=== PATIENT | female | born 1995 | race Caucasian/White ===

== ENCOUNTER → 2018-06-20 | Outpatient (CLI) | payer OTHER ==
[~2018-06-20] MED LIST: ISOVUE-370 76% 100ML VIAL (Q9967) As Ordered
== END ==
LOC: M RADPRO 11:45
DX: N97.9 Female infertility, unspecified (principal)
CPT/HCPCS: 58340

== ENCOUNTER → 2018-07-15 | Outpatient (REF) | payer OTHER | LOC: M SFHCLERA 13:08 | DX: R10.9 Unspecified abdominal pain (principal) ==

== ENCOUNTER → 2018-07-28 | Outpatient (REF) | payer OTHER ==
[2018-07-28 13:38] LABS: HEMATOCRIT 41.6 % (36.0-47.0); HEMOGLOBIN 14.9 g/dl (12.0-15.5); MEAN CORPUSCULAR HEMOGLOBIN 32.3 pg (27.0-33.0); MEAN CORPUSCULAR HGB CONC 35.8 g/dl (32.0-36.5); PLATELET COUNT, AUTOMATED 308 10^3/uL (150-450); RED BLOOD COUNT 4.62 10^6/uL (4.00-5.40); RED CELL DISTRIBUTION WIDTH 11.9 % (11.5-14.5); WHITE BLOOD COUNT 14.8 10^3/uL (4.0-10.0)
[2018-07-28 14:31] LABS: RUBELLA IgG QUALITATIVE IMMUNE (IMMUNE)
[2018-07-28 14:35] LABS: HBsAg Prenatal NEGATIVE (NEGATIVE)
[2018-07-28 14:44] LABS: HCG, SERUM QUANTITATIVE 25242 MIU/ML
[2018-07-28 14:59] LABS: HEPATITIS C VIRUS ABY INDEX 0.5 INDEX (<0.8)
[2018-07-28 15:35] LABS: CHLAMYDIA DNA AMPLIFICATION NEGATIVE (NEGATIVE); GC DNA AMPLIFICATION NEGATIVE (NEGATIVE)
[2018-08-02 18:28] LABS: HIV 1&2 SCREEN CENTAUR NEGATIVE (NEGATIVE)
== END ==
LOC: M LAB REF 13:14
DX: O36.80X0 Pregnancy with inconclusive fetal viability, not applicable or unspecified (principal)
CPT/HCPCS: 86762

== ENCOUNTER → 2018-09-04 | Outpatient (CLI) | payer OTHER ==
[2018-09-04 19:12] LABS: BASO % 0.3 % (0.0-1.0); EOS # 0.2 10^3/uL (0.0-0.50); EOS % 1.5 % (0.0-3.0); HEMATOCRIT 40.1 % (36.0-47.0); IMMATURE GRANULOCYTE % 0.4 % (0-3.0); LYMPH # 2.5 10^3/uL (1.5-6.5); MEAN CORPUSCULAR HGB CONC 34.9 g/dl (32.0-36.5); MEAN CORPUSCULAR VOLUME 91.6 fl (80.0-96.0); MONO # 0.5 10^3/uL (0.0-0.8); MONO % 4.8 % (0.0-5.0); NEUTROPHILS # 7.9 10^3/uL (1.8-7.7); PLATELET COUNT, AUTOMATED 260 10^3/uL (150-450); RED BLOOD COUNT 4.38 10^6/uL (4.00-5.40); RED CELL DISTRIBUTION WIDTH 11.9 % (11.5-14.5); WHITE BLOOD COUNT 11.2 10^3/uL (4.0-10.0)
[2018-09-04 23:38] LABS: CHLAMYDIA DNA AMPLIFICATION NEGATIVE (NEGATIVE); GC DNA AMPLIFICATION NEGATIVE (NEGATIVE)
[2018-09-06 11:09] LABS: HBsAg Prenatal NEGATIVE (NEGATIVE); HIV 1&2 SCREEN CENTAUR NEGATIVE (NEGATIVE); RUBELLA IgG QUALITATIVE IMMUNE (IMMUNE)
[2018-09-06 11:09] LABS: HEPATITIS C VIRUS ABY INDEX 0.3 INDEX (<0.8)
== END ==
LOC: M SMT 13:10
DX: Z3A.11 11 weeks gestation of pregnancy (principal); O09.211 Supervision of pregnancy with history of pre-term labor, first trimester

== ENCOUNTER → 2018-10-17 | Outpatient (CLI) | payer OTHER | LOC: M SMT 14:26 | DX: Z36.89 Encounter for other specified antenatal screening (principal); Z3A.18 18 weeks gestation of pregnancy | CPT/HCPCS: 76811 ==

== ENCOUNTER → 2018-10-30 | Outpatient (REF) | payer OTHER | LOC: M LAB REF 17:16 | DX: O09.212 Supervision of pregnancy with history of pre-term labor, second trimester (principal) ==

== ENCOUNTER → 2018-12-05 | Outpatient (REF) | payer OTHER | LOC: M SFHCLERA 13:12 | PROVIDERS: ATTEND Nurse Practitioner Family | DX: J02.9 Acute pharyngitis, unspecified (principal) ==

== ENCOUNTER 2018-12-13 21:28 | Outpatient (CLI) | payer OTHER ==
[~2018-12-13] VITALS: Ht 172.7 cm; Wt 71.0 kg
[2018-12-13 21:41] VITALS: BP 112/73
[2018-12-13] MEDS ORDERED: LR 1,000 ML IV SCH (22:45)
[2018-12-13] MEDS ORDERED: MAG Sulf (L&D) 4 GM/100 ML 4 GM in APPROPRIATE DILUENT 1 EA IV ONE (23:00)
[2018-12-13 23:04] LABS: HEMATOCRIT 34.4 % (36.0-47.0); MEAN CORPUSCULAR HGB CONC 34.9 g/dl (32.0-36.5); MEAN CORPUSCULAR VOLUME 94.5 fl (80.0-96.0); PLATELET COUNT, AUTOMATED 271 10^3/uL (150-450); RED BLOOD COUNT 3.64 10^6/uL (4.00-5.40); WHITE BLOOD COUNT 15.3 10^3/uL (4.0-10.0)
[2018-12-13 23:42] LABS: AMPHETAMINES URINE REFLEX NEGATIVE (NEGATIVE); BARBITURATES URINE REFLEX NEGATIVE (NEGATIVE); BENZODIAZEPINES URINE REFLEX NEGATIVE (NEGATIVE); CANNABINOIDS URINE REFLEX NEGATIVE (NEGATIVE); COCAINE METABOLITE URINE REFLE NEGATIVE (NEGATIVE); METHADONE URINE REFLEX NEGATIVE (NEGATIVE); OPIATES URINE REFLEX NEGATIVE (NEGATIVE); PHENCYCLIDINE URINE REFLEX NEGATIVE (NEGATIVE)
[2018-12-13] MEDS: BETAMETHASONE SOLUSPAN 6MG/ML INJ 5ML (J0702) IM SCH (23:52)
--- NOTE | 2018-12-13 23:54 | REPVR ---
EXAM: US After First Trimester, Transabdominal EXAM DATE/TIME: 12/13/2018 11:36 PM CLINICAL HISTORY: 23 years old, female; Signs and symptoms; Lmp or gestational age (in weeks): 26; Antepartum complications; Other: Contractions; ; Additional info: labor, transvaginal cervical length, growth TECHNIQUE: Real-time transabdominal obstetrical ultrasound of the maternal pelvis and a second or third trimester with image documentation. COMPARISON: US OBS SINGLE GEST 10/17/2018 2:33 PM FINDINGS: GESTATION: Gestation: Single fetus. Heart rate: heart rate 136 beats per minute. Presentation: Breech presentation. Placenta: Right lateral placenta. No placenta previa or abruption. Amniotic fluid: Amniotic fluid is normal for gestational age. Head, face, and neck: Head anatomy unremarkable; face, and neck anatomy are obscured by position. Heart: Heart is grossly unremarkable although partially obscured by position. Abdomen: Abdominal anatomy is unremarkable. Umbilical cord and insertion: Umbilical cord insertion is unremarkable. Spine: Spinal anatomy is obscured by position. Extremities: Visualized segments of the extremities appear unremarkable. BIOMETRY: Estimated gestational age: Gestational age based on LMP is 26 weeks 5 days. SHIKHA 03/16/2019. Gestational age based on earliest ultrasound is 26 weeks 2 days with an SHIKHA of 03/19/2019. Gestational age based on today's measurements is 26 weeks with an SHIKHA of 03/21/2019. Estimated weight: Estimated weight 885 g (26 percentile). Biparietal diameter: BPD measures 6.3 cm. Head circumference: Head circumference 24.3 cm. Abdominal circumference: Abdominal circumference 21.3 cm. Femur length: Femur length 4.9 cm. MATERNAL: Uterus: Unremarkable. Cervix: Cervical length measures 3.7 cm without funneling or bulging of membranes. IMPRESSION: Small for dates fetus at 26 weeks gestational age. Continued interval followup suggested to assess growth. Ultrasound measurements concordant with dates predicted by LMP. Electronically signed by: Dl Gonzales On 12/13/2018 23:54:06 PM
[2018-12-14] VITALS (27 sets, daily range): BP systolic 82–116; BP diastolic 44–65
[2018-12-14] MEDS: MAG Sulf (OBGYN) 20GM/500ML 20,000 MG in APPROPRIATE DILUENT 1 EA IV SCH ×2 (00:18→09:02)
[2018-12-14] MEDS ORDERED: PROG200C PO (03:38)
[2018-12-14] MEDS ORDERED: PRENTAB7 PO (03:38)
--- NOTE | 2018-12-14 04:02 | IPN ---
DATE: 12/13/2018 Edinson is a 23-year-old 6, para 1-2-2-3 at 26-5/7 weeks gestation with an estimated date of confinement (EDC) of 03/16/2019 based on last menstrual period and confirmed by first trimester ultrasound. She presents to labor and delivery today with report of onset of contractions at approximately 1830. She does report some bloody show about an hour after the contractions began and reports that contractions have now become closer together and a little bit more uncomfortable with continued bloody show. She does report active. Denies leakage of fluid. Her care was initiated at [facility] in the first trimester. course complicated by history of a prior section at 28 weeks gestation for premature rupture of membranes. delivery x2, chronic urinary tract infection (UTI) in her prior , a history of a poor surgical experience with that prior section. OBSTETRICAL HISTORY: August 2014: 39 weeks gestation, 6 pounds 14 ounces male spontaneous vaginal delivery March 2016: 32 weeks gestation, 4 pounds 4 ounces female vaginal delivery, premature rupture of the membranes (PPROM) March 2017: 28 weeks gestation, 2 pounds 4 ounces female underwent primary section, premature rupture of the membranes (PPROM), chronic UTI November 02: Spontaneous miscarriage November 27, 2014: Spontaneous miscarriage. OBSTETRICAL LABORATORIES: B+, antibody screen negative, rubella immune, [facility] ([facility]) nonreactive. Hep B surface antigen negative, human immunodeficiency virus (HIV) negative. Hepatitis C nonreactive. Gonorrhea and chlamydia negative. Quad screen was negative. A cystic fibrosis carrier screening negative for 97 mutation. Urine culture no growth. PAST MEDICAL HISTORY: Attention-deficit/hyperactivity disorder (ADHD) Anxiety. Reports a heart-shaped uterus. Childhood varicella. MEDICATIONS: No medications. SURGERIES: section. Appendectomy. FAMILY HISTORY: Family history of heart disease. Cystic fibrosis. Autism. SOCIAL HISTORY The patient is . She is a prior smoker. She does report that she quit smoking with the onset of her . She denies alcohol and drug use. Denies history of any sexually transmitted infections and denies history of abuse physical, sexual and emotional. ALLERGIES: PENICILLIN, AMOXICILLIN, AUGMENTIN and CEFZIL. CURRENT MEDICATIONS: - Prometrium 200 mg per vagina - vitamin OBJECTIVE: Temperature 98.6, pulse 115, blood pressure is 112/73. She is alert and oriented x3. She does appear mildly uncomfortable with her contractions. heart rate is 140, moderate variability, appropriate for gestational age. Contractions are every 4 to 6 minutes. They do palpate moderate. A sterile vaginal exam. Sterile speculum exam noted bleeding from the cervix unable to obtain fibronectin due to the vaginal bleeding mixed with mucus. Sterile vaginal exam external os open approximately 3 cm internal os closed, mid position, soft . presentation variable. ASSESSMENT: 1. Intrauterine at 26-5/7 weeks. heart rate is appropriate for gestational age. 2. contractions with history of premature rupture of the membranes (PPROM) and delivery x2. 3. Prior section. PLAN: Per consultation with Dr. Nikia Vickers tocolysis with magnesium sulfate which will also benefit from neuro protection with magnesium sulfate, betamethasone for lung maturity, transvaginal cervical length and growth ultrasound ordered. Pending the cervical length the plan of care may change. IV fluids. Observe at this time.
[2018-12-14] MEDS: BETAMETHASONE SOLUSPAN 6MG/ML INJ 5ML (J0702) IM SCH (23:54)
--- NOTE | 2018-12-15 08:31 | NUR ---
L&D Progress Note: - Patient completed steroids and magnesium discontinued. No further contractions and was discharge home with f/u next week in office. Nikia Vickers MD
== END 2018-12-15 | disposition home or self-care (01) ==
LOC: M LDO 21:28
PROVIDERS: ATTEND Advanced Practice Midwife
DX: O47.9 False labor, unspecified (principal); O09.212 Supervision of pregnancy with history of pre-term labor, second trimester; Z3A.26 26 weeks gestation of pregnancy
CPT/HCPCS: 76816; 80307; 85027; 86780; 86850; 86900; 86901; 96365; 96366; 96372; G0378; G0463; J0702; J3475

== ENCOUNTER 2018-12-18 16:50 | Outpatient (CLI) | payer OTHER ==
[~2018-12-18] VITALS: Ht 172.7 cm; Wt 72.0 kg
[~2018-12-18 16:50] MED LIST changes: -ISOVUE-370 76% 100ML VIAL (Q9967) As Ordered; +PRENTAB7 PO; +PROG200C PO
[2018-12-18 17:16] VITALS: BP 119/68
[2018-12-18] MEDS ORDERED: METR-201 PO (19:20)
[2018-12-18] MEDS ORDERED: DIFL150T PO (19:23)
[2018-12-18] MEDS ORDERED: metroNIDAZOLE (FLAGYL) 500 MG TAB PO ONE (19:30)
[2018-12-18 19:33] LABS: APPEARANCE, URINE CLEAR (CLEAR); BACTERIA, URINE AUTO NEGATIVE (NEGATIVE); BILIRUBIN, URINE AUTO NEGATIVE (NEGATIVE); BLOOD, URINE BLOOD 1+ (NEGATIVE); COLOR, URINE YELLOW (YELLOW); GLUCOSE, URINE (UA) AUTO NEGATIVE (NEGATIVE); KETONE, URINE AUTO NEGATIVE (NEGATIVE); LEUKOCYTE ESTERASE, URINE AUTO NEGATIVE (NEGATIVE); MUCUS, URINE SMALL (NEGATIVE); NITRITE, URINE AUTO NEGATIVE (NEGATIVE); PROTEIN, URINE AUTO NEGATIVE (NEGATIVE); RBC, URINE AUTO 4 /HPF (0-3); SPECIFIC GRAVITY URINE AUTO 1.017 (1.002-1.035); SQUAMOUS EPITHELIAL CELL UR AU 0 /HPF (0-6); UROBILINOGEN, URINE AUTO 0.2 mg/dL (0.0-2.0); WBC, URINE AUTO 1 /HPF (0-3)
--- NOTE | 2018-12-18 19:45 | IPNPDOC ---
Text Note Date of Service The patient was seen on 12/18/18. NOTE Subjective: Patient is a 23-year-old female who is a at 27.3 weeks gestation with an SHIKHA of 03/16/19 based on her LMP and consistent with her 1st trimester ultrasound. She presents to L&D with complaints of questionable leaking of fluid and bloody show. She reports a slight leak of fluid down her leg mostly consistent of bloody mucus. Reports she is no longer leaking anything. She reports some contractions but reports they stopped when she got to the hospital. She reports active movement. Objective: Labs, ultrasound, and VS: see below. FHR: 135, appropriate for gestational age. Contractions: 1 noted. A+Ox3; Respiratory: regular rate; abdomen: gravid and soft with palpation. A sterile speculum exam was done. The cervix appeared to be irritated and friable. There vagina had no fluid present and no fluid that was noted after Valsalva x2. There was a scant amount of bright red spotting noted on the cervix. The cervix appeared to be closed and thick. A sample was taken and a fern test done. Negative fern test noted. Assessment: IUP at 27.3 weeks gestation; not in active labor and not spontaneously ruptured; cervical irritation (acute cervicitis). Plan: Collaborated plan of care with Dr. Vickers. FARHAD 15 cm. BPP 06/30 with appropriate NST for gestational age. There was question about the cord dopplers as they were high but an ultrasound on done 12/15/18 for growth indicated the fetus to be in the 26%. Patient to be treated with metronidazole for cervical irritation. She is to be discharged home. Medications sent to pharmacy. Reviewed access to care, kick count, labor signs, and danger signs to report. Patient is to follow-up in the office for routine OB appointments. VS,Fishbone, I+O VS, Fishbone, I+O Item Value Date Time Urine Color YELLOW 12/18/181818 Urine Appearance CLEAR 12/18/181818 Urine pH 6.0 UNITS 12/18/181818 Urine Specific Arpin 1.017 12/18/181818 Urine Protein NEGATIVE mg/dL 12/18/181818 Urine Glucose (UA) NEGATIVE mg/dL 12/18/181818 Urine Ketones NEGATIVE mg/dL 12/18/181818 Urine Blood 1+ H 12/18/181818 Urine Nitrite NEGATIVE 12/18/181818 Urine Bilirubin NEGATIVE 12/18/181818 Urine Urobilinogen 0.2 mg/dL 12/18/181818 Urine Leukocyte Esterase NEGATIVE 12/18/181818 Urine WBC (Auto) 1 /HPF 12/18/181818 Urine RBC (Auto) 4 /HPF H 12/18/181818 Urine Hyaline Casts (Auto) 0 /LPF 12/18/181818 Urine Bacteria (Auto) NEGATIVE 12/18/181818 Urine Squamous Epithelial Cells 0 /HPF 12/18/181818 Urine Mucus (Auto) SMALL 12/18/181818 ADDENDUM REPORT 1 The findings were verbally communicated via telephone conference with UZIEL PARKS at 8:13 PM EST on 12/18/2018. In particular, findings regarding the cord Doppler were discussed. There was an interval ultrasound exam with biometric measurements performed in house on 12/15/2018, on this study, there was no evidence of growth restriction. The abnormal BPP score is of questionable but doubtful significance given the gestational age of the fetus. Electronically signed by: Esther Rodriguez On 12/18/2018 20:16:55 PM DD: ESTHER RODRIGUEZ MD 12/18/18 1850 DT: MEGHANN 12/18/182015 DS: WENDY 12/18/182015 EXAM: US , Limited EXAM DATE/TIME: 12/18/2018 6:50 PM CLINICAL HISTORY: 23 years old, female; Signs and symptoms; Other: Vaginal bleeding, cramping; ; Additional info: ? Rom, HX of labor. The gestational age according to the [facility] ultrasound is 27 weeks 0 days. TECHNIQUE: Real-time ultrasound of the maternal uterus with image documentation. Exam focused on the clinical indication. COMPARISON: US OBS FOLL UP OR REPEAT EACH GES 12/13/2018 11:04 PM. FINDINGS: GESTATION: Gestation: Single intrauterine gestation. Heart rate: heart rate is 149 bpm. Placenta: The placenta is posterior and fundal without evidence of previa or abruption. Amniotic fluid: The amniotic fluid index is 15.0 cm. Heart: A 4 chamber heart was visualized. The face was partially obscured by position. The bladder was visualized. biometrics were not obtained. MATERNAL: Cervix: The cervix is long and closed measuring 3.5 cm on the transvaginal imaging with fundal pressure applied. IMPRESSION: The cervix is long and closed. EXAM: US Doppler Velocimetry of the Umbilical Artery EXAM DATE/TIME: 12/18/2018 6:50 PM CLINICAL HISTORY: 23 years old, female; Signs and symptoms; Other: Vaginal bleeding, cramping; ; Additional info: ? Rom, HX of labor TECHNIQUE: US Doppler velocimetry of the umbilical artery with Doppler color and waveform analysis. COMPARISON: US OBS FOLL UP OR REPEAT EACH GES 12/13/2018 11:04 PM FINDINGS: Umbilical artery Doppler: There are 2 umbilical arteries which are patent. Umbilical artery waveforms: Waveforms are within normal limits for age. Cord resistive indices of 0.71 and 0.77, near the 95th percentile based on a gestational age of 27 weeks. Umbilical artery systolic to diastolic ratio: The average cord systolic to diastolic ratio is 4.5. This is at the 95th percentile based on a gestational age of 27 weeks. IMPRESSION: Cord S/D ratio is at the 95th percentile based on gestational age of 27 weeks. Recommend continued short interval surveillance for possible developing placental insufficiency. EXAM: US Biophysical Profile Without Non-Stress Test EXAM DATE/TIME: 12/18/2018 6:50 PM CLINICAL HISTORY: 23 years old, female; Signs and symptoms; Other: Vaginal bleeding, cramping; ; Additional info: ? Rom, HX of labor TECHNIQUE: US biophysical profile without non-stress testing. COMPARISON: US OBS FOLL UP OR REPEAT EACH GES 12/13/2018 11:04 PM FINDINGS: Breathin/2 Gross body movements: 2/2 tone: 2/2 Qualitative amniotic fluid: 2/2. The amniotic fluid index is 15.0 cm. IMPRESSION: Biophysical profile score is 6 out of 8. Episodes of breathing were not observed. Consider a short interval followup study in 24 hours. Electronically signed by: Esther Rodriguez On 12/18/2018 20:11:26 PM UZIEL PARKS CNM Dec 18, 2018 19:45
--- NOTE | 2018-12-18 20:11 | REPVR ---
EXAM: US , Limited EXAM DATE/TIME: 12/18/2018 6:50 PM CLINICAL HISTORY: 23 years old, female; Signs and symptoms; Other: Vaginal bleeding, cramping; ; Additional info: ? Rom, HX of labor. The gestational age according to the [facility] ultrasound is 27 weeks 0 days. TECHNIQUE: Real-time ultrasound of the maternal uterus with image documentation. Exam focused on the clinical indication. COMPARISON: US OBS FOLL UP OR REPEAT EACH GES 12/13/2018 11:04 PM. FINDINGS: GESTATION: Gestation: Single intrauterine gestation. Heart rate: heart rate is 149 bpm. Placenta: The placenta is posterior and fundal without evidence of previa or abruption. Amniotic fluid: The amniotic fluid index is 15.0 cm. Heart: A 4 chamber heart was visualized. The face was partially obscured by position. The bladder was visualized. biometrics were not obtained. MATERNAL: Cervix: The cervix is long and closed measuring 3.5 cm on the transvaginal imaging with fundal pressure applied. IMPRESSION: The cervix is long and closed. EXAM: US Doppler Velocimetry of the Umbilical Artery EXAM DATE/TIME: 12/18/2018 6:50 PM CLINICAL HISTORY: 23 years old, female; Signs and symptoms; Other: Vaginal bleeding, cramping; ; Additional info: ? Rom, HX of labor TECHNIQUE: US Doppler velocimetry of the umbilical artery with Doppler color and waveform analysis. COMPARISON: US OBS FOLL UP OR REPEAT EACH GES 12/13/2018 11:04 PM FINDINGS: Umbilical artery Doppler: There are 2 umbilical arteries which are patent. Umbilical artery waveforms: Waveforms are within normal limits for age. Cord resistive indices of 0.71 and 0.77, near the 95th percentile based on a gestational age of 27 weeks. Umbilical artery systolic to diastolic ratio: The average cord systolic to diastolic ratio is 4.5. This is at the 95th percentile based on a gestational age of 27 weeks. IMPRESSION: Cord S/D ratio is at the 95th percentile based on gestational age of 27 weeks. Recommend continued short interval surveillance for possible developing placental insufficiency. EXAM: US Biophysical Profile Without Non-Stress Test EXAM DATE/TIME: 12/18/2018 6:50 PM CLINICAL HISTORY: 23 years old, female; Signs and symptoms; Other: Vaginal bleeding, cramping; ; Additional info: ? Rom, HX of labor TECHNIQUE: US biophysical profile without non-stress testing. COMPARISON: US OBS FOLL UP OR REPEAT EACH GES 12/13/2018 11:04 PM FINDINGS: Breathin/2 Gross body movements: 2/2 tone: 2/2 Qualitative amniotic fluid: 2/2. The amniotic fluid index is 15.0 cm. IMPRESSION: Biophysical profile score is 6 out of 8. Episodes of breathing were not observed. Consider a short interval followup study in 24 hours. Electronically signed by: Esther Vazquez On 12/18/2018 20:11:26 PM
== END 2018-12-18 19:49 | disposition home or self-care (01) ==
LOC: M LDO 16:50 → M LDI 16:57 → M LDO 19:49
PROVIDERS: ATTEND Advanced Practice Midwife
DX: O26.892 Other specified pregnancy related conditions, second trimester (principal); Z3A.27 27 weeks gestation of pregnancy; O23.512 Infections of cervix in pregnancy, second trimester
CPT/HCPCS: 76815; 76817; 76819; 76820; 81001; 87086; G0378; G0463

== ENCOUNTER 2018-12-23 18:41 | Outpatient (CLI) | payer OTHER ==
[~2018-12-23] VITALS: Ht 172.7 cm; Wt 71.2 kg
[~2018-12-23 18:41] MED LIST changes: +DIFL150T PO; +METR-201 PO
[2018-12-23 18:57] VITALS: BP 110/67
[2018-12-23] MEDS ORDERED: LR 1,000 ML IV SCH (19:53)
[2018-12-23] MEDS ORDERED: AZITHROMYCIN 250 MG TAB PO ONE (20:00)
[2018-12-23] MEDS ORDERED: CLINDAMYCIN 900 MG in APPROPRIATE DILUENT 1 EA IV SCH (20:00)
[2018-12-23 20:10] LABS: HEMATOCRIT 37.8 % (36.0-47.0); HEMOGLOBIN 13.1 g/dl (12.0-15.5); MEAN CORPUSCULAR HEMOGLOBIN 32.8 pg (27.0-33.0); MEAN CORPUSCULAR HGB CONC 34.7 g/dl (32.0-36.5); MEAN CORPUSCULAR VOLUME 94.5 fl (80.0-96.0); PLATELET COUNT, AUTOMATED 291 10^3/uL (150-450); WHITE BLOOD COUNT 18.2 10^3/uL (4.0-10.0)
[2018-12-23] MEDS ORDERED: MAG Sulf (OBGYN) 20GM/500ML 20,000 MG in APPROPRIATE DILUENT 1 EA IV SCH (20:40)
[2018-12-23] MEDS ORDERED: CALCIUM GLUCONATE 1,000 MG in NS 100 ML IV ONE (20:45)
[2018-12-23] MEDS ORDERED: MAG Sulf (L&D) 4 GM/100 ML 4 GM in APPROPRIATE DILUENT 1 EA IV ONE (20:45)
[2018-12-23 21:01] LABS: APPEARANCE, URINE CLEAR (CLEAR); BACTERIA, URINE AUTO NEGATIVE (NEGATIVE); BILIRUBIN, URINE AUTO NEGATIVE (NEGATIVE); BLOOD, URINE BLOOD 1+ (NEGATIVE); COLOR, URINE YELLOW (YELLOW); GLUCOSE, URINE (UA) AUTO NEGATIVE (NEGATIVE); KETONE, URINE AUTO NEGATIVE (NEGATIVE); LEUKOCYTE ESTERASE, URINE AUTO 1+ (NEGATIVE); MUCUS, URINE SMALL (NEGATIVE); NITRITE, URINE AUTO NEGATIVE (NEGATIVE); PROTEIN, URINE AUTO NEGATIVE (NEGATIVE); RBC, URINE AUTO 10 /HPF (0-3); SPECIFIC GRAVITY URINE AUTO 1.018 (1.002-1.035); SQUAMOUS EPITHELIAL CELL UR AU 1 /HPF (0-6); UROBILINOGEN, URINE AUTO 0.2 mg/dL (0.0-2.0); WBC, URINE AUTO 15 /HPF (0-3)
[2018-12-23] MEDS ORDERED: MAGNESIUM SULFATE 4% INJ 20GM/500ML (40MG/ML) (J3475) As Ordered ONE (21:03)
[2018-12-23] MEDS ORDERED: MAGNESIUM *L&D* 4 GM/100 ML BAG (40MG/ML) (J3475) As Ordered ONE (21:03)
--- NOTE | 2018-12-24 21:52 | HPE ---
DATE OF SERVICE: 12/23/2018 HISTORY OF PRESENT ILLNESS: Ms. Hollingsworth is a 23-year-old 6, para 1-2-2-3 at 28 weeks 1 day estimated gestational age with an estimated date of confinement (EDC) of 03/16/2019 based on last menstrual period (LMP) confirmed by first trimester ultrasound with complaints of leakage of clear fluid. This occurred approximately at 1700 this afternoon. She denies any vaginal bleeding. She reports active movements with no contractions. Her course is remarkable for contractions and threatened labor. She received a course of steroids on December 13, 2018 for labor. She was also on tocolysis with magnesium sulfate. Her history is remarkable for a history of two prior deliveries; one at 32 weeks and one at 28 weeks which was a premature rupture of the membranes (PPROM) at 27 weeks. She had a section () at 28 weeks for presumed sepsis. She has been receiving [place] during her , had a reaction and discontinued the Shey and started on Prometrium for a history of labor. PAST MEDICAL HISTORY: None. PAST SURGICAL HISTORY: She has had two sections (C-sections) for both her deliveries as well as an appendectomy. PAST OBSTETRICAL HISTORY: She is a 6, para 1-2-2-3. She has had one term delivery that was uncomplicated at 39 weeks followed by a delivery at 32 weeks after a premature rupture of the membranes (PPROM) at 30 weeks. She had a section () for malpresentation and this was followed by a premature rupture of the membranes (PPROM) at 27 weeks and the delivery at 28 weeks via section. MEDICATIONS: - Prometrium - vitamins ALLERGIES: She has allergies to PENICILLIN, AMOXICILLIN, AUGMENTIN as well a CEPHALOSPORINS. SOCIAL HISTORY: She denies any alcohol, tobacco, or drug use during the . PHYSICAL EXAMINATION: On physical examination: VITAL SIGNS: Stable. She is afebrile. GENERAL APPEARANCE: Well-appearing in no acute distress. She has category 1 heart tracing with no contractions on tocometer. LUNGS: Clear to auscultation bilaterally. CARDIOVASCULAR: Heart regular rate and rhythm. ABDOMEN: Gravid and nontender. On sterile speculum examination she is grossly ruptured, Nitrazine positive, Ferning positive, pooling positive and cervix appeared to be closed visually. Transabdominal ultrasound at bedside: Amniotic fluid index (FARHAD) approximately 6 cm, fetus in a breech presentation. LABORATORIES: Blood type is B positive. Antibody screen is negative. Rubella is immune. RPR is nonreactive. Hepatitis surface antigen is negative. Hepatitis C is nonreactive. Chlamydia and gonorrhea screens are negative. She had a group B Streptococcus (GBS) done on 12/05/2018 which was negative. ASSESSMENT: 1. Ms. Hollingsworth is a 23-year-old 6, para 3 with premature rupture at 28 weeks and 1 day estimated gestational age by her last menstrual period confirmed with a first trimester ultrasound. 2. Reassuring status. 3. Fetus is a breech presentation. 4. History of two prior sections. PLAN: 1. A saline lock, complete blood count (CBC), type and screen. 2. Azithromycin, Clindamycin, gentamicin for prolonged latency. 3. She has been thoroughly counseled in regards to her diagnosis. I discussed the risks for prematurity of the infant. I also discussed expected management at this time of her labor to include risks of sepsis, demise, placenta abruption, and labor progression. I also discussed transport to [facility], [place] to include the risks as well as benefits. All questions have been answered and the patient agrees with plan and transport to [place]. Accepting physician is Dr. Mays. YUKO
== END 2018-12-23 22:05 | disposition other institution (70) ==
LOC: M LDO 18:41
PROVIDERS: ATTEND Obstetrics & Gynecology
DX: O42.913 Preterm premature rupture of membranes, unspecified as to length of time between rupture and onset of labor, third trimester (principal); Z3A.28 28 weeks gestation of pregnancy
CPT/HCPCS: 59025; 76815; 81001; 85027; 86780; 86850; 86900; 86901; 96361; 96374; 96375; G0378; G0463; J3475

== ENCOUNTER → 2019-07-11 | Outpatient (CLI) | payer OTHER ==
[~2019-07-11] MED LIST changes: -METR-201 PO; +METR-265 PO; +PROG1CAP9 PO; -PROG200C PO
== END ==
LOC: M LRY 08:38
PROVIDERS: ATTEND Obstetrics & Gynecology
DX: O20.0 Threatened abortion (principal)

== ENCOUNTER → 2019-07-13 | Outpatient (CLI) | payer OTHER ==
[~2019-07-13] MED LIST changes: +ACET-683 PO; +IBUP-1426 PO
== END ==
LOC: M LRY 08:32
PROVIDERS: ATTEND Advanced Practice Midwife
DX: O20.0 Threatened abortion (principal); Z3A.00 Weeks of gestation of pregnancy not specified

== ENCOUNTER 2019-08-15 11:04 | Emergency (ER) | payer OTHER ==
[~2019-08-15] VITALS: Ht 172.7 cm; Wt 65.5 kg
[~2019-08-15 11:04] MED LIST changes: -ACET-683 PO; -IBUP-1426 PO
[2019-08-15] MEDS ORDERED: ACET-683 PO (11:13)
[2019-08-15] MEDS ORDERED: IBUP-1426 PO (11:13)
--- NOTE | 2019-08-15 12:18 | REP ---
LEFT SHOULDER SINGLE VIEW: Single AP view left shoulder is performed in this patient who is 10 weeks . The patient was double-shielded. A single view of the left shoulder shows no evidence of acute fracture. There may be mild elevation of the distal end of the left clavicle and AC joint injury. The humeral head is well-aligned with the glenoid. Incidental note is made of a left cervical rib. Electronically Signed by Patricio Hernandez MD 08/15/2019 03:19 P
[2019-08-15 12:29] VITALS: BP 109/64
== END 2019-08-15 12:42 | disposition home or self-care (01) ==
LOC: M ED 11:04
DX: O9A.211 Injury, poisoning and certain other consequences of external causes complicating pregnancy, first trimester (principal); S49.82XA Other specified injuries of left shoulder and upper arm, initial encounter; W20.8XXA Other cause of strike by thrown, projected or falling object, initial encounter; Y92.098 Other place in other non-institutional residence as the place of occurrence of the external cause; O99.331 Smoking (tobacco) complicating pregnancy, first trimester; F17.210 Nicotine dependence, cigarettes, uncomplicated; Z88.0 Allergy status to penicillin; Z88.1 Allergy status to other antibiotic agents; Z3A.10 10 weeks gestation of pregnancy

== ENCOUNTER → 2019-08-28 | Outpatient (REF) | payer OTHER ==
[~2019-08-28] MED LIST changes: +ACET-683 PO; +IBUP-1426 PO
== END ==
LOC: M SFHCLERA 15:40
PROVIDERS: ATTEND Physician Assistant
DX: R50.9 Fever, unspecified (principal)